=== PATIENT | male | born 1940 | race Caucasian/White ===

== ENCOUNTER → 2018-07-21 12:13 | Outpatient (CLI) | payer MEDICARE, OTHER, SELFPAY ==
[2018-07-21 13:30] LABS: Basophils % 0.6 % (0.1-2.0); Eosinophils # 0.1 K/mm3 (0.0-0.4); Eosinophils % 1.2 % (0.1-12.0); Hematocrit 51.7 % (42.0-52.0); Hemoglobin 15.8 g/dL (14.1-18.0); Lymphocytes # 1.2 K/mm3 (0.7-4.5); Lymphocytes % 17.1 K/mm3 (10-50); Mean Corpuscular HGB Conc 30.7 g/dL (31.8-35.4); Mean Corpuscular Hemoglobin 30.4 pg (27.0-31.2); Mean Platelet Volume 8.4 fl (7.4-10.4); Monocytes # 0.5 K/mm3 (0.1-1.0); Monocytes % 7.1 % (1.7-9.3); Neutrophils # 5.3 K/mm3 (1.8-7.8); Neutrophils % 74.1 % (37.0-80.0); Platelet Count 216 K/mm3 (142-424); Red Blood Count 5.22 M/mm3 (4.60-6.20); Red Cell Distribution Width 13.3 % (11.5-17.5); White Blood Count 7.1 K/mm3 (4.8-10.8)
[2018-07-21 14:53] LABS: Alanine Aminotransferase 29 U/L (12-78); Albumin Level 3.1 gm/dL (3.4-5.0); Albumin/Globulin Ratio 0.7 (1.1-1.8); Alkaline Phosphatase 129 U/L (46-116); Aspartate Amino Transferase 12 U/L (15-37); Bilirubin,Total 0.8 mg/dL (0.2-1.0); Blood Urea Nitrogen 16 mg/dL (7-18); Calcium 8.8 mg/dL (8.5-10.1); Carbon Dioxide 29 mmol/L (21.0-32.0); Chloride 99 mmol/L (98-107); Creatinine,Serum 0.84 mg/dL (0.70-1.30); Estimated Glomerular Filt Rate 88 ml/min (>60); Ferritin 291 ng/mL (8-388); GFR (African American) 107 ML/MIN (>60); Globulin 4.5 gm/dl (1.3-3.2); Glucose 235 mg/dL (74-106); Sodium 138 mmol/L (136-145); Thyroid Stimulating Hormone 0.41 uIU/ml (0.358-3.740); Total Protein,Serum 7.6 gm/dL (6.4-8.2)
[2018-07-22 06:31] LABS: Folate >20.0 ng/mL (>3.0)
[2018-07-22 07:20] LABS: Iron 49 ug/dL (38-169); Iron Saturation 24 % (15-55); UIBC 158 ug/dL (111-343)
[2018-07-22 12:38] LABS: Vitamin B12 788 pg/mL (232-1245)
[2018-07-22 12:39] LABS: Haptoglobin 301 mg/dL (34-200)
[2018-07-22 15:17] LABS: Albumin 3.1 g/dL (2.9-4.4); Alpha-1-Globulin 0.5 g/dL (0.0-0.4); Alpha-2-Globulin 1.2 g/dL (0.4-1.0); Gamma Globulin 1.4 g/dL (0.4-1.8); Immunoglobulin A, Qn 302 mg/dL (61-437); Immunoglobulin G, Qn 1208 mg/dL (700-1600); Protein, Total 7.1 g/dL (6.0-8.5)
[2018-07-22 16:25] LABS: Free Kappa Lt Chains 45.9 mg/L (3.3-19.4); Free Lambda Lt Chains 22.5 mg/L (5.7-26.3)
[2018-07-22 20:02] LABS: Immunoglobulin M, Qn 166 mg/dL (15-143)
== END ==
PROVIDERS: Visit Provider Internal Medicine Medical Oncology
DX: D64.9 Anemia, unspecified (principal)
CPT/HCPCS: 36415; 80053; 82607; 82728; 82746; 82784; 83010; 83540; 83550; 83883; 84155; 84165; 84443; 85025; 86334